=== PATIENT | male | born 1960 | race Hispanic/Latino ===

== ENCOUNTER 2022-05-19 14:42 | Emergency (ER) | payer SELFPAY ==
[~2022-05-19] VITALS: Ht 170.2 cm; Wt 100.0 kg
[2022-05-19] MEDS ORDERED: OMNI-PAC300 MG PO (15:36)
[2022-05-19 16:41] VITALS: BP 210/94
== END 2022-05-19 16:50 | disposition home or self-care (01) | DRG 605 ==
LOC: ED 14:42
PROC: 2W3EX1Z Immobilization of Right Hand using Splint (ICD-10-PCS; principal; 2022-05-19)
DX: S61.011A Laceration without foreign body of right thumb without damage to nail, initial encounter (principal); S61.210A Laceration without foreign body of right index finger without damage to nail, initial encounter; S61.212A Laceration without foreign body of right middle finger without damage to nail, initial encounter; S61.214A Laceration without foreign body of right ring finger without damage to nail, initial encounter; E11.9 Type 2 diabetes mellitus without complications; I10 Essential (primary) hypertension; W31.89XA Contact with other specified machinery, initial encounter; Y92.009 Unspecified place in unspecified non-institutional (private) residence as the place of occurrence of the external cause